=== PATIENT | male | born 1985 | race Caucasian/White ===

== ENCOUNTER 2021-10-26 14:03 | Emergency (ER) | payer MEDICAID ==
[~2021-10-26] VITALS: Ht 180.3 cm; Wt 81.6 kg
--- NOTE | 2021-10-26 14:39 | NUR ---
Dr Mansfield at the bedside for MSE.
--- NOTE | 2021-10-26 15:25 | NUR ---
Patient discharged to home in stable condition. Written and verbal after care instructions given. Patient verbalizes understanding of instructions. Stressed follow up or return to ER for worsening s/s.
[2021-10-26 15:26] VITALS: BP 105/70
== END 2021-10-26 15:26 | disposition home or self-care (01) ==
LOC: ER 14:03
DX: B08.4 Enteroviral vesicular stomatitis with exanthem (principal); Z86.16 Personal history of COVID-19
CPT/HCPCS: A4663